=== PATIENT | female | born 1965 | race Caucasian/White ===

== ENCOUNTER → 2022-09-28 08:15 | Outpatient (CLI) | payer BC, SELFPAY ==
--- NOTE | ~2022-09-28 | MR_ITS ---
EXAMINATION: MR brain/brain stem wo con DATE: 09/28/2022 09:16 INDICATION: Migraine headache. TECHNIQUE: Magnetic resonance imaging (MRI) of the brain and brainstem was performed without intraven ous contrast. COMPARISON: None. FINDINGS: There are scattered areas of nonspecific increased T2-weighted signal intensity in the cere bral white matter, which is within normal limits for the patient's age. There is no intracranial hemo rrhage, acute infarction, or abnormal intracranial mass lesion. The ventricles are normal in size. Th e paranasal sinuses are clear. The mastoid air cells are normal. The orbits are normal. IMPRESSION: 1. Normal aging brain. Reviewed, dictated and finalized at location A. T BANDER IMPRESSION: 1. Normal aging brain.
== END ==
DX: G43.109 Migraine with aura, not intractable, without status migrainosus (principal)
CPT/HCPCS: 70551

== ENCOUNTER → 2023-06-15 14:43 | Outpatient (CLI) | payer BC, SELFPAY ==
--- NOTE | ~2023-06-15 | XR_ITS ---
EXAM: XR knee LT min 4V DATE: 06/15/2023 14:59 HISTORY: left knee pain . COMPARISON: None available. FINDINGS: Normal mineralization. No fracture or dislocation. No lytic or blastic lesion. Mild medial joint space narrowing. Mild tricompartmental osteophytosis. No erosion or periosteal change. Soft ti ssues within normal limits. IMPRESSION: Mild left knee osteoarthritis, otherwise normal left knee radiograph findings. Reviewed, dictated and finalized at location K. IMPRESSION: Mild left knee osteoarthritis, otherwise normal left knee radiograp h findings.
== END ==
DX: M17.12 Unilateral primary osteoarthritis, left knee (principal)
CPT/HCPCS: 73564

== ENCOUNTER → 2023-07-21 14:20 | Outpatient (CLI) | payer BC, SELFPAY ==
--- NOTE | ~2023-07-21 | XR_ITS ---
EXAMINATION: XR shoulder LT min 2V DATE: 07/21/2023 14:48 INDICATION: Left shoulder pain. TECHNIQUE: 4 views of left shoulder were obtained. COMPARISON: None. FINDINGS: Bone alignment is normal. No fracture. There is mild osteoarthritis of glenohumeral joint a nd acromioclavicular joint characterized by tiny osteophytes. IMPRESSION: 1. Mild polyarticular osteoarthritis. Reviewed, dictated and finalized at location A. ERER DIPPER
--- NOTE | ~2023-07-21 | XR_ITS ---
EXAMINATION: XR thoracic spine 3V DATE: 07/21/2023 14:48 INDICATION: Pain between the upper thoracic spine and the left scapula TECHNIQUE: One AP, lateral and lateral swimmer's views of the thoracic spine were obtained. COMPARISON: None. FINDINGS: 3 component curvature of the thoracic spine with 12 degree levocurvature between C7 and T5, 10 degree dextrocurvature between T5 and T8 and 6 degree levocurvature between T8 and T11. Sagittal alignment is normal. Vertebral body heights are normal. Moderate disc height loss in the cervical spine at C4-C 5 and C5-C6, mild disc height loss at C6-C7 and at T3-T4 through T5-T6. Visualized portions of the yesenia ngs are clear with no pleural effusion or pneumothorax. Cardiomediastinal silhouette is normal. IMPRESSION: 1. Mild 3 compartment curvature of the thoracic spine with mild upper thoracic spondylosis. 2. Moderate cervical spondylosis. Reviewed, dictated and finalized at location A. TRONIC DIE MAKER
== END ==
DX: M47.892 Other spondylosis, cervical region (principal); M47.894 Other spondylosis, thoracic region; M19.012 Primary osteoarthritis, left shoulder
CPT/HCPCS: 72072; 73030

== ENCOUNTER → 2023-08-09 10:56 | Outpatient (CLI) | payer BC, SELFPAY ==
--- NOTE | ~2023-08-09 | MR_ITS ---
MRI of the lumbar spine Clinical History: Connective tissue disease Technique: Axial T2-weighted images, and sagittal T1-weighted, T2-weighted, and and T2 fat-sat images were acquired. Findings: There is no fracture or subluxation of the lumbar spine. Vertebral bodies maintain normal h eight and alignment. No bone marrow signal reality seen. At L1-L2, there is no disc bulge or herniation. There is mild to moderate facet arthropathy. No centr al canal stenosis or neural foraminal narrowing. At L2-L3, there is minimal disc bulge with moderate facet arthropathy. No central canal stenosis or n eural foraminal narrowing. L3-L4, there is disc bulge and moderate facet arthropathy. No cesilia central canal stenosis. There is mild bilateral neural foraminal narrowing. At L4-L5, there is disc bulge and advanced facet arthropathy. No central canal stenosis. There is mod erate bilateral neural foraminal narrowing, left worse than right. At L5-S1, there is disc bulge and advanced facet arthropathy. No central canal stenosis or neural for aminal narrowing. Paravertebral soft tissues are unremarkable. Impression: Mild degenerative spondylosis, as detailed above. Reviewed, dictated and finalized at location . 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
== END ==
DX: M35.9 Systemic involvement of connective tissue, unspecified (principal); M54.50 Low back pain, unspecified; G89.29 Other chronic pain; M25.551 Pain in right hip; M25.552 Pain in left hip; M47.896 Other spondylosis, lumbar region
CPT/HCPCS: 72148

== ENCOUNTER → 2023-08-09 11:02 | Outpatient (CLI) | payer BC, SELFPAY ==
--- NOTE | ~2023-08-09 | XR_ITS ---
EXAMINATION: XR chest 2V DATE: 08/09/2023 11:47 INDICATION: Cough TECHNIQUE: PA and lateral views of the chest are obtained. COMPARISON: None available FINDINGS: The lungs are free of acute opacities. There is symmetric scarring of the lung apices. No p leural effusion or pneumothorax. The cardiomediastinal silhouette is normal. There is mild thoracic s pondylosis. Surgical clips in the right upper quadrant are likely from prior cholecystectomy. IMPRESSION: 1. No acute cardiopulmonary abnormality. Reviewed, dictated and finalized at location L. 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
== END ==
DX: R05.9 Cough, unspecified (principal)
CPT/HCPCS: 71046

== ENCOUNTER → 2023-08-17 15:15 | Outpatient (CLI) | payer BC, SELFPAY ==
--- NOTE | ~2023-08-17 | CT_ITS ---
EXAMINATION: CT diagnostic chest wo con DATE: 08/17/2023 15:43 INDICATION: Cough TECHNIQUE: Computed tomography (CT) of the chest was performed without intravenous contrast. The dose -length product was 150.70 mGy-cm. Automated exposure control and iterative reconstruction technique were employed. Automated exposure control and iterative reconstruction technique were employed. COMPARISON: None FINDINGS: Heart size is normal. No significant pleural or pericardial effusion. There is a 3 mm nodul e superior segment right lower lobe, image 48. There is apical pleural thickening/scarring. No endobr onchial lesions. No pneumothorax. No focal airspace consolidation. No thoracic lymphadenopathy. There are cholecystectomy clips. No pneumothorax. No acute osseous abnormality. IMPRESSION: 1. Right lower lobe nodule measuring 3 mm, likely benign. Consider follow-up low dose CT chest and 12 months. 2: No acute cardiopulmonary disease. Reviewed, dictated and finalized at location L. PERSON IMPRESSION: 1. Right lower lobe nodule measuring 3 mm, likely benign. Consider follow-up lo w dose CT chest and 12 months. 2: No acute cardiopulmonary disease.
== END ==
DX: R05.9 Cough, unspecified (principal); R91.1 Solitary pulmonary nodule
CPT/HCPCS: 71250

== ENCOUNTER 2023-12-13 12:44 | Outpatient (CLI) | payer BC, SELFPAY ==
--- NOTE | ~2023-12-13 | MR_ITS ---
EXAMINATION: MR_LEJ2+LTWO_MR DATE: 12/13/2023 14:03 INDICATION: Left hip and knee pain TECHNIQUE: 1. Magnetic resonance imaging (MRI) of the left knee was performed without intravenous contrast. Seq uences included coronal PD-weighted FSE, coronal PD-weighted FS FSE, sagittal T2-weighted FSE, sagitt al PD-weighted FS FSE and axial PD weighted fat saturated FSE. 2. MRI of the left hip was performed without intravenous contrast. Sequences included full-field axia l PD-weighted FS FSE and T1-weighted FSE, coronal of the pelvis with PD-weighted FS FSE, T2-weighted FSE and T1-weighted FSE, small field of view of the left hip with axial PD-weighted FS FSE, sagittal PD-weighted FS FSE, coronal PD-weighted FS FSE and coronal T2 weighted FSE. Additional radial T1-we ighted FGR oriented orthogonal to the acetabular rim were obtained for evaluation of the labrum. COMPARISON: None. FINDINGS: LEFT HIP: Bones/labrum/cartilage: Alignment is normal. No fracture, avascular necrosis or pathologic marrow replacing process. Small o s acetabulum within the superolateral left labrum. No evident labral tear. Mild left hip osteoarthrit is with mild partial-thickness cartilage loss with smooth chondral surface and without degenerative s ubchondral changes most prominent at the anterior and posterior inferior left hip. Fluid: Symmetric physiologic amount of fluid within both hip joints. There is increased fluid signal both de ep and superficial to the distal left gluteus medius medius tendon consistent with combination of glu teus medius and trochanteric bursitis. No other abnormal fluid collections identified. Soft tissues: Normal and symmetric muscle bulk and signal in the pelvis and visualized proximal thighs. There is mo derate tendinopathy without definitive tear at the trochanteric insertion of the distal left gluteus medius tendon. Remaining bilateral gluteal tendons along the bilateral iliopsoas and proximal hamstri ng tendons are normal. The uterus is not identified and has likely been surgically resected. Right hy drosalpinx with T2 hyperintense dilated serpiginous fluid-filled structure measuring up to 2.6 cm in maximal diameter at the right adnexa. Left adnexa and visualized bowels are unremarkable. No patholo gically enlarged pelvic/inguinal lymphadenopathy. LEFT KNEE: Medial compartment: Medial meniscus is normal. Articular cartilage is normal. Lateral compartment: Lateral meniscus is normal. Articular cartilage is normal. Patellofemoral compartment: Partial-thickness chondral ulceration and fissuring which appears to involve at least 50% the cartila ge thickness but without degenerative subchondral changes at the medial patellar facet. Remaining car tilage in the patellofemoral compartment is normal. Ligaments and tendons: Anterior and posterior cruciate ligaments are normal. The medial collateral ligament and fibular christopher ateral ligament complex are normal. The extensor mechanism is normal. The visualized medial and later al hamstring tendons as well as the iliotibial band are normal. Fluid: Physiologic amount of fluid in the joint space. No loose osteochondral bodies identified. Osseous/other: Normal marrow signal. No fracture or pathologic marrow replacing process. IMPRESSION: 1. Left-sided gluteus medius and trochanteric bursitis with moderate tendinopathy without tear of the intervening distal left gluteus medius tendon. 2. Mild osteoarthritis at the left hip and at the patellofemoral compartment of the left knee. 3. Status post hysterectomy with residual right-sided hydrosalpinx. Reviewed, dictated and finalized at location A. IMPRESSION: 1. Left-sided gluteus medius and trochanteric bursitis with moderate tendinopat hy without tear of the intervening distal le
== END 2023-12-13 12:45 ==
PROVIDERS: Visit Provider Physician Assistant
DX: M16.12 Unilateral primary osteoarthritis, left hip (principal); M70.62 Trochanteric bursitis, left hip; M17.12 Unilateral primary osteoarthritis, left knee; Z90.710 Acquired absence of both cervix and uterus
CPT/HCPCS: 73721

== ENCOUNTER 2024-07-30 15:37 | Outpatient (CLI) | payer BC, SELFPAY ==
--- NOTE | ~2024-07-30 | CT_ITS ---
CT Scan of the Chest without Contrast: Clinical Indication: Cough Technique: Contiguous sections were acquired throughout the chest without intravenous contrast. Dose reduction technique was used on this scan by utilizing automated exposure control and iterative recon struction technique. The dose-length product (DLP) was 156.59 mGy-cm. COMPARISON: 08/17/2023 Findings: There is no evidence of any significant mediastinal, hilar or axillary lymphadenopathy. The mediastin al soft tissues appear normal. There is no evidence of pleural or pericardial effusion. There is mild biapical scarring. Stable calcified granulomas in the right middle lobe. Images through the upper abdomen reveal no abnormalities. Impression: No acute abnormality. Stable calcified right middle lobe granulomas. Reviewed, dictated and finalized at [facility]. CY WRITER TYPIST Impression: No acute abnormality. Stable calcified right middle lobe granulomas.
== END 2024-07-30 15:38 | disposition home or self-care (01) ==
LOC: MICIMG 15:37
PROVIDERS: PCP Physician Assistant; Visit Provider Physician Assistant
DX: R91.8 Other nonspecific abnormal finding of lung field (principal)
CPT/HCPCS: 71250